=== PATIENT | male | born 1960 | race Caucasian/White ===

== ENCOUNTER 2019-06-01 20:19 | Inpatient (IN) | payer OTHER ==
[~2019-06-01] VITALS: Ht 167.6 cm; Wt 75.3 kg
[~2019-06-01 20:19] MED LIST: ALBU90AE INHALATION; AMLO5TAB4 PO; ASPI-817 PO; BUME1TAB PO; CHOL100062 PO; CLOT30CR24 TOP; DICL100G37 TOP; ERGO500013 PO; FER325 PO; FURO40TA4 PO; GUAI5SYR2 PO; INSU100I12 SQ; INSU100I33 SC; LISI-313 PO; LORA-186 PO; METO-335 PO; NICO-546 TRANSDERM; NICO2GUM7 BUCCAL; PANT40TA4 PO; PROP10TA6 PO; SPIR25TA PO; TIOT18CA INH; TRAZ150T65 PO; VARE0.5T PO; WORK NOTE
[2019-06-01] MEDS ORDERED: METHYLPREDNISOLONE 125 MG INJ IV STA (20:26)
[2019-06-01] MEDS ORDERED: ALBUTEROL 0.5% (NEB) 2.5 MG/0.5 ML AMP INH STA (20:26)
[2019-06-01] MEDS ORDERED: IPRATROPIUM (NEB) 0.5 MG/2.5 ML AMP INH STA (20:26)
[2019-06-01] MEDS ORDERED: INSULIN LISPRO 100 UNIT/ML VIAL SC STA (20:57)
[2019-06-01] MEDS ORDERED: DEXTROSE 50% 50 ML SYRINGE IV PRN ×2 (21:30)
[2019-06-01] MEDS ORDERED: GLUCOSE GEL 15 GRAM TUBE PO PRN ×2 (21:30)
[2019-06-01] MEDS ORDERED: GLUCAGON 1 MG INJ IM PRN (21:30)
[2019-06-01] MEDS ORDERED: GLUCOSE GEL 15 GRAM TUBE BUCCAL PRN (21:30)
[2019-06-01] MEDS ORDERED: NALOXONE (0.4 MG/ML) INJ ONE (21:37)
[2019-06-01] MEDS ORDERED: NALOXONE 2 MG SYG IV ONE (22:00)
[2019-06-01] MEDS ORDERED: FUROSEMIDE 40 MG INJ IV ONE (22:00)
[2019-06-01] MEDS ORDERED: BISACODYL (EC) 5 MG TAB PO PRN (23:30)
[2019-06-01] MEDS ORDERED: DOCUSATE SODIUM 100 MG CAP PO PRN (23:30)
[2019-06-01] MEDS ORDERED: ONDANSETRON 4 MG INJ IV PRN (23:30)
[2019-06-01] MEDS ORDERED: NACL 0.9% 3 ML SYG IV SCH (23:30)
[2019-06-01] MEDS ORDERED: ACETAMINOPHEN 325 MG TAB PO PRN (23:30)
[2019-06-01] MEDS ORDERED: hydrALAzine 20 MG INJ IV PRN (23:30)
[2019-06-02] VITALS (10 sets, daily range): BP systolic 119–152; BP diastolic 67–85; PULSE 43–86; RESP 17–20; Ht 167.6 cm; Wt 75.3 kg
[2019-06-02] MEDS ORDERED: METHYLPREDNISOLONE 40 MG INJ IV ONE
[2019-06-02] MEDS: ALBUTEROL/IPRATROPIUM (NEB) 3 ML AMP HHN SCH ×6 (01:15→20:36)
[2019-06-02] MEDS ORDERED: ACCU-CHEK XX SCH (02:00)
[2019-06-02] MEDS ORDERED: INSULIN REGULAR, HUMAN 100 UNIT/1 ML 3ML VIAL IV ONE (03:00)
[2019-06-02] MEDS ORDERED: FUROSEMIDE 40 MG INJ IV SCH (06:00)
[2019-06-02] MEDS: PANTOPRAZOLE (EC) 40 MG TAB PO SCH (06:34)
[2019-06-02] MEDS ORDERED: INSULIN GLARGINE [LANTus] (100 UNITS/ML) SYG SC ONE (07:00)
[2019-06-02] MEDS ORDERED: INSULIN ASPART [NOVOLOG] 3 ML PEN SC SCH ×3 (07:55)
[2019-06-02] MEDS ORDERED: METHYLPREDNISOLONE 40 MG INJ IV SCH (09:00)
[2019-06-02] MEDS ORDERED: NPH, HUMAN INSULIN ISOPHANE 3ML VIAL SC SCH (09:00)
[2019-06-02] MEDS ORDERED: NPH, HUMAN INSULIN ISOPHANE 3ML VIAL SC ONE (11:00)
[2019-06-02] MEDS ORDERED: NICOTINE (14 MG/24 HR) PATCH TRANSDERM ONE (11:30)
[2019-06-02] MEDS: INSULIN ASPART [NOVOLOG] 3 ML PEN SC SCH ×6 (11:50→21:23)
[2019-06-02] MEDS ORDERED: hydrALAzine 20 MG INJ IV PRN (12:00)
[2019-06-02] MEDS: TIOTROPIUM 18 MCG CAPSULE INHA DEV INH SCH (14:13)
[2019-06-02] MEDS ORDERED: POTASSIUM CHLORIDE (SR) 20 MEQ TAB PO STA (15:31)
[2019-06-02] MEDS: SPIRONOLACTONE 25 MG TAB PO SCH (16:21)
[2019-06-02] MEDS: ASPIRIN (EC) 81 MG TAB PO SCH (16:21)
[2019-06-02] MEDS ORDERED: NON-FORMULARY/PATIENT OWN MED (Insulin Lispro (Humalog Kwikpen U-100) 6 UNIT) SQ SCH (17:00)
[2019-06-02] MEDS ORDERED: ALBUTEROL HFA 8 GM INHALER INH PRN (17:00)
[2019-06-02] MEDS: FUROSEMIDE 40 MG INJ IV SCH (17:41)
[2019-06-02] MEDS ORDERED: INSULIN GLARGINE [LANTus] (100 UNITS/ML) SYG SC SCH ×3 (20:00)
[2019-06-02] MEDS ORDERED: traZODone 100 MG TAB PO ONE (22:30)
[2019-06-03 00:09] VITALS: BP 134/88; PULSE 85; RESP 20
[2019-06-03] MEDS: ALBUTEROL/IPRATROPIUM (NEB) 3 ML AMP HHN SCH ×6 (01:20→20:35)
[2019-06-03] MEDS: ACCU-CHEK XX SCH (02:00)
[2019-06-03 04:18] VITALS: BP 137/77; PULSE 87; RESP 20
[2019-06-03] MEDS: FUROSEMIDE 40 MG INJ IV SCH ×2 (05:49→17:08)
[2019-06-03] MEDS: PANTOPRAZOLE (EC) 40 MG TAB PO SCH (05:49)
[2019-06-03 07:59] VITALS: BP 132/84; PULSE 89; RESP 17
[2019-06-03] MEDS: TIOTROPIUM 18 MCG CAPSULE INHA DEV INH SCH (08:26)
[2019-06-03] MEDS: NICOTINE (14 MG/24 HR) PATCH TRANSDERM SCH (08:27)
[2019-06-03] MEDS: BALSAM PERU/CASTOR OIL 60 GM TUBE TOP SCH (08:27)
[2019-06-03] MEDS: ASPIRIN (EC) 81 MG TAB PO SCH (08:28)
[2019-06-03] MEDS: LORATADINE 10 MG TAB PO SCH (08:28)
[2019-06-03] MEDS: SPIRONOLACTONE 25 MG TAB PO SCH (08:28)
[2019-06-03] MEDS: FERROUS SULFATE (EC) 325 MG TAB PO SCH (08:28)
[2019-06-03] MEDS: INSULIN ASPART [NOVOLOG] 3 ML PEN SC SCH ×7 (08:37→20:26)
[2019-06-03] MEDS ORDERED: predniSONE 20 MG TAB PO SCH (09:00)
[2019-06-03] MEDS ORDERED: NPH, HUMAN INSULIN ISOPHANE 3ML VIAL SC SCH (09:00)
[2019-06-03] MEDS ORDERED: ASPIRIN (EC) 81 MG TAB PO SCH (09:00)
[2019-06-03 11:36] VITALS: BP 132/79; PULSE 56; RESP 17
[2019-06-03] MEDS ORDERED: INSULIN ASPART [NOVOLOG] 3 ML PEN SC SCH ×2 (12:30→17:55)
[2019-06-03] MEDS ORDERED: PROPRANOLOL 10 MG TAB PO SCH ×2 (13:00→14:30)
[2019-06-03 15:50] VITALS: BP 148/90; PULSE 66; RESP 17
[2019-06-03] MEDS ORDERED: MAGNESIUM SULFATE 3 GM in DEXTROSE 5% 100 ML IVPB ONE (19:30)
[2019-06-03] MEDS ORDERED: INSULIN GLARGINE [LANTus] (100 UNITS/ML) SYG SC SCH (20:00)
[2019-06-03 20:29] VITALS: BP 131/84; PULSE 70; RESP 20
[2019-06-03] MEDS: INSULIN GLARGINE [LANTus] (100 UNITS/ML) SYG SC SCH (20:35)
[2019-06-03] MEDS: METOPROLOL (XL) 25 MG TAB PO SCH (20:50)
[2019-06-03] MEDS ORDERED: traZODone 100 MG TAB PO ONE (21:00)
[2019-06-04 00:10] VITALS: BP 132/68; PULSE 78; RESP 18
[2019-06-04] MEDS: ALBUTEROL/IPRATROPIUM (NEB) 3 ML AMP HHN SCH ×6 (00:58→21:11)
[2019-06-04] MEDS: ACCU-CHEK XX SCH (02:00)
[2019-06-04 04:21] VITALS: BP 128/79; PULSE 79; RESP 18
[2019-06-04] MEDS: PANTOPRAZOLE (EC) 40 MG TAB PO SCH (05:48)
[2019-06-04 07:32] VITALS: BP 122/75; PULSE 61; RESP 18
[2019-06-04] MEDS: FUROSEMIDE 40 MG INJ IV SCH (08:32)
[2019-06-04] MEDS: ASPIRIN (EC) 81 MG TAB PO SCH (08:33)
[2019-06-04] MEDS: TIOTROPIUM 18 MCG CAPSULE INHA DEV INH SCH (08:33)
[2019-06-04] MEDS: SPIRONOLACTONE 25 MG TAB PO SCH (08:34)
[2019-06-04] MEDS: METOPROLOL (XL) 25 MG TAB PO SCH ×2 (08:34→21:03)
[2019-06-04] MEDS: FERROUS SULFATE (EC) 325 MG TAB PO SCH (08:34)
[2019-06-04] MEDS: INSULIN ASPART [NOVOLOG] 3 ML PEN SC SCH ×7 (08:37→21:18)
[2019-06-04] MEDS: LORATADINE 10 MG TAB PO SCH (08:38)
[2019-06-04] MEDS: NICOTINE (14 MG/24 HR) PATCH TRANSDERM SCH (08:39)
[2019-06-04] MEDS: BALSAM PERU/CASTOR OIL 60 GM TUBE TOP SCH (08:39)
[2019-06-04] MEDS ORDERED: predniSONE 20 MG TAB PO SCH ×2 (09:00)
[2019-06-04] MEDS ORDERED: NPH, HUMAN INSULIN ISOPHANE 3ML VIAL SC SCH ×2 (09:00)
[2019-06-04 11:26] VITALS: BP 139/72; PULSE 70; RESP 18
[2019-06-04 15:40] VITALS: BP 125/79; PULSE 63; RESP 19
[2019-06-04] MEDS: LEVOFLOXACIN 500MG/D5W (PMX) 100 ML IVPB SCH (15:50)
[2019-06-04 19:49] VITALS: BP 135/71; PULSE 70; RESP 18
[2019-06-04] MEDS: INSULIN GLARGINE [LANTus] (100 UNITS/ML) SYG SC SCH (21:09)
[2019-06-04] MEDS ORDERED: ACCU-CHEK XX ONE (21:30)
[2019-06-04] MEDS ORDERED: INSULIN ASPART [NOVOLOG] 3 ML PEN SC ONE (21:30)
[2019-06-04] MEDS: traZODone 50 MG TAB PO PRN (21:52)
[2019-06-05 00:09] VITALS: BP 108/65; PULSE 80; RESP 18
[2019-06-05] MEDS: ALBUTEROL/IPRATROPIUM (NEB) 3 ML AMP HHN SCH ×6 (01:50→21:00)
[2019-06-05] MEDS: ACCU-CHEK XX SCH (02:10)
[2019-06-05] MEDS ORDERED: ALPRAZOLAM 0.25 MG TAB PO ONE (04:00)
[2019-06-05 04:44] VITALS: BP 125/73; PULSE 77; RESP 18
[2019-06-05] MEDS: PANTOPRAZOLE (EC) 40 MG TAB PO SCH (05:39)
[2019-06-05] MEDS: INSULIN ASPART [NOVOLOG] 3 ML PEN SC SCH ×7 (07:55→21:32)
[2019-06-05 07:58] VITALS: BP 132/81; PULSE 66; RESP 18
[2019-06-05] MEDS: LORATADINE 10 MG TAB PO SCH (08:32)
[2019-06-05] MEDS: SPIRONOLACTONE 25 MG TAB PO SCH (08:32)
[2019-06-05] MEDS: ASPIRIN (EC) 81 MG TAB PO SCH (08:32)
[2019-06-05] MEDS: METOPROLOL (XL) 25 MG TAB PO SCH ×2 (08:37→20:45)
[2019-06-05] MEDS: BALSAM PERU/CASTOR OIL 60 GM TUBE TOP SCH (08:38)
[2019-06-05] MEDS: FUROSEMIDE 40 MG INJ IV SCH (08:38)
[2019-06-05] MEDS: NICOTINE (14 MG/24 HR) PATCH TRANSDERM SCH (08:39)
[2019-06-05] MEDS: TIOTROPIUM 18 MCG CAPSULE INHA DEV INH SCH (08:39)
[2019-06-05] MEDS: FERROUS SULFATE (EC) 325 MG TAB PO SCH (08:39)
[2019-06-05] MEDS ORDERED: LIDOCAINE 1% (MPF) 5 ML VIAL ONE (12:06)
[2019-06-05 15:39] VITALS: BP 134/58; PULSE 53; RESP 18
[2019-06-05] MEDS: LEVOFLOXACIN 500MG/D5W (PMX) 100 ML IVPB SCH (16:23)
[2019-06-05 20:20] VITALS: BP 136/68; PULSE 74; RESP 18
[2019-06-05] MEDS: INSULIN GLARGINE [LANTus] (100 UNITS/ML) SYG SC SCH (20:56)
[2019-06-05] MEDS: traZODone 50 MG TAB PO PRN (22:29)
[2019-06-06 00:09] VITALS: BP 129/80; PULSE 72; RESP 20
[2019-06-06] MEDS: ALBUTEROL/IPRATROPIUM (NEB) 3 ML AMP HHN SCH ×6 (01:33→20:46)
[2019-06-06] MEDS: ACCU-CHEK XX SCH (02:20)
[2019-06-06 04:09] VITALS: BP 136/77; RESP 20
[2019-06-06] MEDS ORDERED: LEVOFLOXACIN 500 MG TAB PO SCH (06:00)
[2019-06-06] MEDS: PANTOPRAZOLE (EC) 40 MG TAB PO SCH (06:28)
[2019-06-06] MEDS: INSULIN ASPART [NOVOLOG] 3 ML PEN SC SCH ×7 (07:55→20:14)
[2019-06-06] MEDS: NICOTINE (14 MG/24 HR) PATCH TRANSDERM SCH (08:42)
[2019-06-06] MEDS: LORATADINE 10 MG TAB PO SCH (08:43)
[2019-06-06] MEDS: ASPIRIN (EC) 81 MG TAB PO SCH (08:43)
[2019-06-06] MEDS: SPIRONOLACTONE 25 MG TAB PO SCH (08:43)
[2019-06-06] MEDS: FERROUS SULFATE (EC) 325 MG TAB PO SCH (08:43)
[2019-06-06 08:48] VITALS: BP 126/88; PULSE 70; RESP 20
[2019-06-06] MEDS: METOPROLOL (XL) 25 MG TAB PO SCH ×2 (08:52→20:18)
[2019-06-06] MEDS: BALSAM PERU/CASTOR OIL 60 GM TUBE TOP SCH (08:53)
[2019-06-06] MEDS: FUROSEMIDE 40 MG TAB PO SCH (08:53)
[2019-06-06] MEDS: TIOTROPIUM 18 MCG CAPSULE INHA DEV INH SCH (11:32)
[2019-06-06 12:22] VITALS: BP 135/67; PULSE 50
[2019-06-06] MEDS ORDERED: LIDOCAINE 1% (MPF) 5 ML VIAL ONE (13:14)
[2019-06-06 15:00] VITALS: BP 125/59; PULSE 51; RESP 20
[2019-06-06] MEDS: INSULIN GLARGINE [LANTus] (100 UNITS/ML) SYG SC SCH (20:15)
[2019-06-06 20:34] VITALS: BP 146/69; PULSE 69; RESP 20
[2019-06-07 00:14] VITALS: BP 143/70; PULSE 69; RESP 20
[2019-06-07] MEDS: ALBUTEROL/IPRATROPIUM (NEB) 3 ML AMP HHN SCH ×6 (01:00→20:36)
[2019-06-07] MEDS: ACCU-CHEK XX SCH (02:00)
[2019-06-07 04:36] VITALS: BP 121/81; PULSE 65; RESP 18
[2019-06-07] MEDS: PANTOPRAZOLE (EC) 40 MG TAB PO SCH (06:02)
[2019-06-07] MEDS: INSULIN ASPART [NOVOLOG] 3 ML PEN SC SCH ×7 (07:39→21:49)
[2019-06-07 07:56] VITALS: BP 138/90; PULSE 68; RESP 18
[2019-06-07] MEDS: TIOTROPIUM 18 MCG CAPSULE INHA DEV INH SCH (07:58)
[2019-06-07] MEDS: BALSAM PERU/CASTOR OIL 60 GM TUBE TOP SCH (07:59)
[2019-06-07] MEDS: NICOTINE (14 MG/24 HR) PATCH TRANSDERM SCH (08:08)
[2019-06-07] MEDS: ASPIRIN (EC) 81 MG TAB PO SCH (08:08)
[2019-06-07] MEDS: LORATADINE 10 MG TAB PO SCH (08:08)
[2019-06-07] MEDS: SPIRONOLACTONE 25 MG TAB PO SCH (08:09)
[2019-06-07] MEDS: METOPROLOL (XL) 25 MG TAB PO SCH ×2 (08:09→21:06)
[2019-06-07] MEDS: FUROSEMIDE 40 MG TAB PO SCH (08:09)
[2019-06-07] MEDS: FERROUS SULFATE (EC) 325 MG TAB PO SCH (08:09)
[2019-06-07 11:17] VITALS: BP 139/76; PULSE 71; RESP 20
[2019-06-07 16:22] VITALS: BP 134/84; PULSE 71; RESP 20
[2019-06-07 20:00] VITALS: BP 125/76; PULSE 71; RESP 18
[2019-06-07] MEDS ORDERED: INSULIN GLARGINE [LANTus] (100 UNITS/ML) SYG SC ONE (20:00)
[2019-06-07] MEDS ORDERED: LISINOPRIL 5 MG TAB PO SCH (21:00)
[2019-06-07] MEDS: traZODone 50 MG TAB PO PRN (21:09)
[2019-06-08] VITALS: BP 129/80; PULSE 64; PULSE 69; RESP 20
[2019-06-08] MEDS: ALBUTEROL/IPRATROPIUM (NEB) 3 ML AMP HHN SCH ×6 (00:53→20:43)
[2019-06-08] MEDS: ACCU-CHEK XX SCH (02:20)
[2019-06-08 04:00] VITALS: BP 132/63; PULSE 69; RESP 18
[2019-06-08] MEDS: PANTOPRAZOLE (EC) 40 MG TAB PO SCH (06:06)
[2019-06-08 07:17] VITALS: BP 108/56; PULSE 73; RESP 18
[2019-06-08] MEDS: INSULIN ASPART [NOVOLOG] 3 ML PEN SC SCH ×7 (07:27→20:21)
[2019-06-08] MEDS: TIOTROPIUM 18 MCG CAPSULE INHA DEV INH SCH (08:35)
[2019-06-08] MEDS: NICOTINE (14 MG/24 HR) PATCH TRANSDERM SCH (08:36)
[2019-06-08] MEDS: BALSAM PERU/CASTOR OIL 60 GM TUBE TOP SCH (08:36)
[2019-06-08] MEDS: SPIRONOLACTONE 25 MG TAB PO SCH (08:37)
[2019-06-08] MEDS: ASPIRIN (EC) 81 MG TAB PO SCH (08:37)
[2019-06-08] MEDS: LORATADINE 10 MG TAB PO SCH (08:37)
[2019-06-08] MEDS: FUROSEMIDE 40 MG TAB PO SCH (08:37)
[2019-06-08] MEDS: FERROUS SULFATE (EC) 325 MG TAB PO SCH (08:37)
[2019-06-08] MEDS: METOPROLOL (XL) 25 MG TAB PO SCH ×2 (08:38→20:18)
[2019-06-08] MEDS ORDERED: LISINOPRIL 5 MG TAB PO SCH (09:00)
[2019-06-08 11:14] VITALS: BP 113/58; PULSE 74; RESP 18
[2019-06-08] MEDS ORDERED: LISINOPRIL 5 MG TAB PO ONE (11:30)
[2019-06-08 15:45] VITALS: BP 115/65; PULSE 73; RESP 18
[2019-06-08 20:15] VITALS: BP 120/63; PULSE 72; RESP 18
[2019-06-08] MEDS: LISINOPRIL 5 MG TAB PO SCH (20:19)
[2019-06-08] MEDS: INSULIN GLARGINE [LANTus] (100 UNITS/ML) SYG SC SCH (21:04)
[2019-06-08] MEDS: traZODone 50 MG TAB PO PRN (21:10)
[2019-06-09] VITALS: BP 126/64; PULSE 64; RESP 18
[2019-06-09] MEDS: ALBUTEROL/IPRATROPIUM (NEB) 3 ML AMP HHN SCH ×5 (01:02→17:10)
[2019-06-09] MEDS: ACCU-CHEK XX SCH (02:24)
[2019-06-09 03:47] VITALS: BP 105/54; PULSE 65; RESP 18
[2019-06-09] MEDS: PANTOPRAZOLE (EC) 40 MG TAB PO SCH (05:19)
[2019-06-09 07:45] VITALS: BP 135/74; PULSE 61; RESP 17
[2019-06-09] MEDS: INSULIN ASPART [NOVOLOG] 3 ML PEN SC SCH ×6 (07:55→17:52)
[2019-06-09] MEDS: ASPIRIN (EC) 81 MG TAB PO SCH (08:17)
[2019-06-09] MEDS: TIOTROPIUM 18 MCG CAPSULE INHA DEV INH SCH (08:17)
[2019-06-09] MEDS: SPIRONOLACTONE 25 MG TAB PO SCH (08:17)
[2019-06-09] MEDS: FERROUS SULFATE (EC) 325 MG TAB PO SCH (08:18)
[2019-06-09] MEDS: LISINOPRIL 5 MG TAB PO SCH (08:18)
[2019-06-09] MEDS: METOPROLOL (XL) 25 MG TAB PO SCH (08:18)
[2019-06-09] MEDS: LORATADINE 10 MG TAB PO SCH (08:18)
[2019-06-09] MEDS: FUROSEMIDE 40 MG TAB PO SCH (08:18)
[2019-06-09] MEDS: BALSAM PERU/CASTOR OIL 60 GM TUBE TOP SCH (08:19)
[2019-06-09] MEDS: NICOTINE (14 MG/24 HR) PATCH TRANSDERM SCH (08:19)
[2019-06-09 11:21] VITALS: BP 136/76; PULSE 66; RESP 17
[2019-06-09 15:08] VITALS: BP 114/73; PULSE 64; RESP 17
== END 2019-06-09 19:13 | disposition home or self-care (01) | DRG 291 ==
LOC: E/R 20:19 → TEL 23:14 → CANRESERV 23:27
PROVIDERS: ADMIT Family Medicine; ATTEND Family Medicine
PROC: 0W993ZZ Drainage of Right Pleural Cavity, Percutaneous Approach (ICD-10-PCS; principal; 2019-06-05)
PROC: 0W9B3ZZ Drainage of Left Pleural Cavity, Percutaneous Approach (ICD-10-PCS; 2019-06-06)
DX: I13.0 Hypertensive heart and chronic kidney disease with heart failure and stage 1 through stage 4 chronic kidney disease, or unspecified chronic kidney disease (principal); J96.00 Acute respiratory failure, unspecified whether with hypoxia or hypercapnia; I50.23 Acute on chronic systolic (congestive) heart failure; J18.9 Pneumonia, unspecified organism; J44.1 Chronic obstructive pulmonary disease with (acute) exacerbation; N17.9 Acute kidney failure, unspecified; J90 Pleural effusion, not elsewhere classified; K76.6 Portal hypertension; N18.9 Chronic kidney disease, unspecified; E11.22 Type 2 diabetes mellitus with diabetic chronic kidney disease; E11.65 Type 2 diabetes mellitus with hyperglycemia; Z59.0 Homelessness; Z72.0 Tobacco use; R00.2 Palpitations; R07.9 Chest pain, unspecified; B19.20 Unspecified viral hepatitis C without hepatic coma; K74.60 Unspecified cirrhosis of liver; I25.2 Old myocardial infarction; I44.0 Atrioventricular block, first degree; I45.10 Unspecified right bundle-branch block
CPT/HCPCS: 32555; 36600; 70450; 71045; 71250; 76604; 76775; 76942; 80048; 80053; 80061; 80307; 81001; 81003; 82140; 82150; 82550; 82553; 82570; 82595; 82728; 82803; 82945; 82962; 83036; 83540; 83615; 83690; 83735; 83880; 84100; 84145; 84157; 84439; 84443; 84484; 85025; 85610; 85730; 86021; 86038; 86160; 86162; 86706; 86803; 87070; 87102; 87116; 87340; 88104; 88305; 89051; 93005; 93306; 94640; 94644; 94660; 94664; 96372; 96374; 96375; J1815; J1940; J1956; J2310; J2920; J2930; J3475; J7512

== ENCOUNTER 2019-06-27 21:57 | Inpatient (IN) | payer OTHER ==
[~2019-06-27] VITALS: Ht 172.7 cm; Wt 73.8 kg
[~2019-06-27 21:57] MED LIST changes: -AMLO5TAB4 PO; -BUME1TAB PO; -CLOT30CR24 TOP; -DICL100G37 TOP; -ERGO500013 PO; -PROP10TA6 PO
[2019-06-27] MEDS ORDERED: INSULIN ASPART [NOVOLOG] 3 ML PEN SC ONE (23:00)
[2019-06-27] MEDS ORDERED: FUROSEMIDE 40 MG INJ IV ONE (23:00)
[2019-06-27] MEDS ORDERED: ACCU-CHEK XX ONE (23:00)
[2019-06-27] MEDS ORDERED: ACETAMINOPHEN 325 MG TAB PO PRN ×2 (23:30)
[2019-06-27] MEDS ORDERED: GUAIFENESIN/DM 5ML CUP PO PRN (23:30)
[2019-06-27] MEDS ORDERED: ONDANSETRON 4 MG INJ IV PRN ×2 (23:30)
[2019-06-27] MEDS ORDERED: LEVALBUTEROL (NEB) 1.25 MG/0.5 ML AMP HHN PRN (23:30)
[2019-06-27] MEDS ORDERED: NACL 0.9% 3 ML SYG IV SCH (23:30)
[2019-06-27] MEDS ORDERED: IPRATROPIUM (NEB) 0.5 MG/2.5 ML AMP HHN PRN (23:30)
[2019-06-28] VITALS (7 sets, daily range): BP systolic 125–174; BP diastolic 66–109; PULSE 74–98; RESP 16–20; Ht 172.7 cm; Wt 73.8 kg
[2019-06-28] MEDS: LISINOPRIL 5 MG TAB PO SCH ×3 (00:14→20:44)
[2019-06-28] MEDS ORDERED: GLUCOSE GEL 15 GRAM TUBE PO PRN ×2 (01:30)
[2019-06-28] MEDS ORDERED: GLUCAGON 1 MG INJ IM PRN (01:30)
[2019-06-28] MEDS ORDERED: DEXTROSE 50% 50 ML SYRINGE IV PRN ×2 (01:30)
[2019-06-28] MEDS ORDERED: GLUCOSE GEL 15 GRAM TUBE BUCCAL PRN (01:30)
[2019-06-28] MEDS: ACCU-CHEK XX SCH (02:02)
[2019-06-28] MEDS ORDERED: MAGNESIUM SULFATE 2 GM/50 ML 50 ML IVPB ONE (02:30)
[2019-06-28] MEDS: NITROGLYCERIN (SL) 0.4 MG TAB SL PRN ×2 (02:38→02:50)
[2019-06-28] MEDS ORDERED: hydrALAzine 20 MG INJ IV PRN (03:30)
[2019-06-28] MEDS ORDERED: FUROSEMIDE 20 MG INJ IV ONE (03:30)
[2019-06-28] MEDS ORDERED: LEVALBUTEROL (NEB) 1.25 MG/0.5 ML AMP HHN PRN (03:30)
[2019-06-28] MEDS ORDERED: IPRATROPIUM (NEB) 0.5 MG/2.5 ML AMP HHN PRN (03:30)
[2019-06-28] MEDS: METOPROLOL (XL) 25 MG TAB PO SCH ×2 (04:15→20:45)
[2019-06-28] MEDS ORDERED: PENDING SANTYL ORDER FOR WOUND CARE XX PRN (05:00)
[2019-06-28] MEDS: PANTOPRAZOLE (EC) 40 MG TAB PO SCH (05:57)
[2019-06-28] MEDS: FUROSEMIDE 40 MG INJ IV SCH ×2 (05:58→17:35)
[2019-06-28] MEDS: ASPIRIN (EC) 81 MG TAB PO SCH (08:11)
[2019-06-28] MEDS: FERROUS SULFATE (EC) 325 MG TAB PO SCH (08:11)
[2019-06-28] MEDS: CHOLECALCIFEROL 1,000 UNIT TAB PO SCH (08:12)
[2019-06-28] MEDS: SPIRONOLACTONE 25 MG TAB PO SCH (08:12)
[2019-06-28] MEDS: INSULIN ASPART [NOVOLOG] 3 ML PEN SC SCH ×7 (08:17→20:49)
[2019-06-28] MEDS: ENOXAPARIN 40 MG/0.4 ML SYG SC SCH (08:17)
[2019-06-28] MEDS: TIOTROPIUM 18 MCG CAPSULE INHA DEV INH SCH (09:00)
[2019-06-28] MEDS: INSULIN GLARGINE [LANTus] (100 UNITS/ML) SYG SC SCH (12:28)
[2019-06-28] MEDS ORDERED: LORAZEPAM 1 MG TAB PO ONE (17:30)
[2019-06-28] MEDS ORDERED: traZODone 50 MG TAB PO SCH (22:30)
[2019-06-28] MEDS: LORAZEPAM 2 MG INJ IV PRN (22:57)
[2019-06-29] VITALS (8 sets, daily range): BP systolic 103–155; BP diastolic 74–90; PULSE 44–77; RESP 14–24
[2019-06-29] MEDS: ACCU-CHEK XX SCH (02:00)
[2019-06-29] MEDS: FUROSEMIDE 40 MG INJ IV SCH ×2 (05:39→17:41)
[2019-06-29] MEDS: PANTOPRAZOLE (EC) 40 MG TAB PO SCH (05:44)
[2019-06-29] MEDS: INSULIN ASPART [NOVOLOG] 3 ML PEN SC SCH ×6 (07:55→20:37)
[2019-06-29] MEDS: ASPIRIN (EC) 81 MG TAB PO SCH (08:18)
[2019-06-29] MEDS: SPIRONOLACTONE 25 MG TAB PO SCH (08:18)
[2019-06-29] MEDS: CHOLECALCIFEROL 1,000 UNIT TAB PO SCH (08:18)
[2019-06-29] MEDS: METOPROLOL (XL) 25 MG TAB PO SCH ×2 (08:18→20:58)
[2019-06-29] MEDS: LISINOPRIL 5 MG TAB PO SCH ×2 (08:18→20:58)
[2019-06-29] MEDS: TIOTROPIUM 18 MCG CAPSULE INHA DEV INH SCH (08:19)
[2019-06-29] MEDS: FERROUS SULFATE (EC) 325 MG TAB PO SCH (08:19)
[2019-06-29] MEDS: INSULIN GLARGINE [LANTus] (100 UNITS/ML) SYG SC SCH (08:21)
[2019-06-29] MEDS: ENOXAPARIN 40 MG/0.4 ML SYG SC SCH (08:22)
[2019-06-29] MEDS: LORAZEPAM 2 MG INJ IV PRN (11:17)
[2019-06-29] MEDS ORDERED: HALOPERIDOL 5 MG INJ IM ONE (21:00)
[2019-06-29] MEDS: NICOTINE (21 MG/24 HR) PATCH TRANSDERM SCH (21:25)
[2019-06-29] MEDS: NICOTINE POLACRILEX 2 MG GUM BUCCAL PRN (22:00)
[2019-06-29] MEDS ORDERED: NA BICARBONATE 8.4% 50 ML SYG IV ONE (23:30)
[2019-06-29] MEDS ORDERED: DIPHENHYDRAMINE 50 MG INJ IV ONE (23:30)
[2019-06-29] MEDS ORDERED: DIPHENHYDRAMINE 50 MG CAP PO ONE (23:30)
[2019-06-30] MEDS: ACCU-CHEK XX SCH (02:00)
[2019-06-30 03:30] VITALS: BP 130/84; PULSE 70; RESP 22
[2019-06-30] MEDS: traZODone 50 MG TAB PO SCH ×2 (03:51→20:17)
[2019-06-30] MEDS: PANTOPRAZOLE (EC) 40 MG TAB PO SCH (06:52)
[2019-06-30] MEDS: FUROSEMIDE 40 MG INJ IV SCH ×2 (06:52→17:36)
[2019-06-30] MEDS: METOPROLOL (XL) 25 MG TAB PO SCH ×2 (07:08→20:17)
[2019-06-30 07:30] VITALS: BP 140/52; PULSE 57; RESP 20
[2019-06-30] MEDS: INSULIN ASPART [NOVOLOG] 3 ML PEN SC SCH ×4 (07:55→20:43)
[2019-06-30] MEDS: TIOTROPIUM 18 MCG CAPSULE INHA DEV INH SCH (08:25)
[2019-06-30] MEDS: ASPIRIN (EC) 81 MG TAB PO SCH (08:28)
[2019-06-30] MEDS: LISINOPRIL 5 MG TAB PO SCH ×2 (08:28→20:17)
[2019-06-30] MEDS: CHOLECALCIFEROL 1,000 UNIT TAB PO SCH (08:28)
[2019-06-30] MEDS: SPIRONOLACTONE 25 MG TAB PO SCH (08:28)
[2019-06-30] MEDS: FERROUS SULFATE (EC) 325 MG TAB PO SCH (08:28)
[2019-06-30] MEDS: NICOTINE (21 MG/24 HR) PATCH TRANSDERM SCH (08:29)
[2019-06-30] MEDS: INSULIN GLARGINE [LANTus] (100 UNITS/ML) SYG SC SCH (08:37)
[2019-06-30] MEDS: ENOXAPARIN 40 MG/0.4 ML SYG SC SCH (08:37)
[2019-06-30 12:50] VITALS: BP 123/68; PULSE 68; RESP 20
[2019-06-30] MEDS: LORAZEPAM 2 MG INJ IV PRN (14:29)
[2019-06-30 15:44] VITALS: BP 109/57; PULSE 66; RESP 18
[2019-06-30 20:00] VITALS: BP 111/59; PULSE 69; RESP 21
[2019-06-30] MEDS: HEPARIN 5,000 UNIT/1 ML VIAL SC SCH (20:43)
[2019-06-30 23:30] VITALS: BP 127/63; PULSE 70; RESP 19
[2019-07-01] MEDS: ACCU-CHEK XX SCH (02:58)
[2019-07-01 06:05] VITALS: BP 109/55; PULSE 71; RESP 21
[2019-07-01] MEDS: FUROSEMIDE 40 MG INJ IV SCH (06:09)
[2019-07-01] MEDS: PANTOPRAZOLE (EC) 40 MG TAB PO SCH (06:09)
[2019-07-01 07:33] VITALS: BP 118/57; PULSE 73; RESP 18
[2019-07-01] MEDS: TIOTROPIUM 18 MCG CAPSULE INHA DEV INH SCH (08:28)
[2019-07-01] MEDS: SPIRONOLACTONE 25 MG TAB PO SCH (08:29)
[2019-07-01] MEDS: CHOLECALCIFEROL 1,000 UNIT TAB PO SCH (08:29)
[2019-07-01] MEDS: FERROUS SULFATE (EC) 325 MG TAB PO SCH (08:29)
[2019-07-01] MEDS: METOPROLOL (XL) 25 MG TAB PO SCH ×2 (08:29→20:07)
[2019-07-01] MEDS: LISINOPRIL 5 MG TAB PO SCH ×2 (08:29→20:08)
[2019-07-01] MEDS: ASPIRIN (EC) 81 MG TAB PO SCH (08:29)
[2019-07-01] MEDS: NICOTINE (21 MG/24 HR) PATCH TRANSDERM SCH (08:30)
[2019-07-01] MEDS: INSULIN ASPART [NOVOLOG] 3 ML PEN SC SCH ×4 (08:40→20:07)
[2019-07-01] MEDS: INSULIN GLARGINE [LANTus] (100 UNITS/ML) SYG SC SCH (08:40)
[2019-07-01] MEDS: HEPARIN 5,000 UNIT/1 ML VIAL SC SCH ×2 (08:40→20:12)
[2019-07-01] MEDS: LORAZEPAM 2 MG INJ IV PRN (10:40)
[2019-07-01 12:03] VITALS: BP 123/62; PULSE 75; RESP 18
[2019-07-01 16:45] VITALS: BP 127/68; PULSE 73; RESP 18
[2019-07-01] MEDS: NICOTINE POLACRILEX 2 MG GUM BUCCAL PRN (17:08)
[2019-07-01 19:49] VITALS: BP 101/52; PULSE 59; RESP 18
[2019-07-01] MEDS: traZODone 50 MG TAB PO SCH (20:07)
[2019-07-02 00:04] VITALS: BP 107/55; PULSE 61; RESP 18
[2019-07-02] MEDS: ACCU-CHEK XX SCH ×2 (02:00→20:33)
[2019-07-02 04:51] VITALS: BP 109/61; PULSE 59; RESP 18
[2019-07-02] MEDS: PANTOPRAZOLE (EC) 40 MG TAB PO SCH (06:15)
[2019-07-02 07:09] VITALS: BP 121/78; PULSE 59; RESP 20
[2019-07-02] MEDS: INSULIN ASPART [NOVOLOG] 3 ML PEN SC SCH ×4 (07:55→20:17)
[2019-07-02] MEDS: TIOTROPIUM 18 MCG CAPSULE INHA DEV INH SCH (08:13)
[2019-07-02] MEDS: FERROUS SULFATE (EC) 325 MG TAB PO SCH (08:14)
[2019-07-02] MEDS: CHOLECALCIFEROL 1,000 UNIT TAB PO SCH (08:14)
[2019-07-02] MEDS: SPIRONOLACTONE 25 MG TAB PO SCH (08:14)
[2019-07-02] MEDS: ASPIRIN (EC) 81 MG TAB PO SCH (08:14)
[2019-07-02] MEDS: METOPROLOL (XL) 25 MG TAB PO SCH ×2 (08:14→20:18)
[2019-07-02] MEDS: LISINOPRIL 5 MG TAB PO SCH ×2 (08:15→20:18)
[2019-07-02] MEDS: NICOTINE (21 MG/24 HR) PATCH TRANSDERM SCH (08:21)
[2019-07-02] MEDS: HEPARIN 5,000 UNIT/1 ML VIAL SC SCH ×2 (08:38→20:22)
[2019-07-02] MEDS: INSULIN GLARGINE [LANTus] (100 UNITS/ML) SYG SC SCH (08:39)
[2019-07-02] MEDS: LORAZEPAM 2 MG INJ IV PRN ×2 (11:09→22:34)
[2019-07-02 11:15] VITALS: BP 118/71; PULSE 57; RESP 18
[2019-07-02 15:16] VITALS: BP 140/77; PULSE 62; RESP 19
[2019-07-02 19:52] VITALS: BP 120/75; PULSE 57; RESP 18
[2019-07-02] MEDS: traZODone 50 MG TAB PO SCH (20:17)
[2019-07-03 00:26] VITALS: BP 122/72; PULSE 59; RESP 18
[2019-07-03 04:31] VITALS: BP 118/75; PULSE 64; RESP 18
[2019-07-03] MEDS: PANTOPRAZOLE (EC) 40 MG TAB PO SCH (06:16)
[2019-07-03 07:17] VITALS: BP 135/86; PULSE 69; RESP 20
[2019-07-03] MEDS: INSULIN ASPART [NOVOLOG] 3 ML PEN SC SCH ×2 (07:50→11:39)
[2019-07-03] MEDS: INSULIN GLARGINE [LANTus] (100 UNITS/ML) SYG SC SCH (08:01)
[2019-07-03] MEDS: TIOTROPIUM 18 MCG CAPSULE INHA DEV INH SCH (09:25)
[2019-07-03] MEDS: METOPROLOL (XL) 25 MG TAB PO SCH (09:25)
[2019-07-03] MEDS: FERROUS SULFATE (EC) 325 MG TAB PO SCH (09:25)
[2019-07-03] MEDS: ASPIRIN (EC) 81 MG TAB PO SCH (09:25)
[2019-07-03] MEDS: CHOLECALCIFEROL 1,000 UNIT TAB PO SCH (09:25)
[2019-07-03] MEDS: LISINOPRIL 5 MG TAB PO SCH (09:25)
[2019-07-03] MEDS: SPIRONOLACTONE 25 MG TAB PO SCH (09:26)
[2019-07-03] MEDS: NICOTINE (21 MG/24 HR) PATCH TRANSDERM SCH (09:26)
[2019-07-03] MEDS: HEPARIN 5,000 UNIT/1 ML VIAL SC SCH (09:32)
[2019-07-03] MEDS: LORAZEPAM 2 MG INJ IV PRN (10:49)
[2019-07-03 11:44] VITALS: BP 134/87; PULSE 69; RESP 19
[2019-07-03 16:00] VITALS: BP 135/87; PULSE 70; RESP 19
== END 2019-07-03 16:50 | disposition home or self-care (01) | DRG 291 ==
LOC: E/R 21:57 → TEL 23:12
PROVIDERS: ADMIT Family Medicine; ATTEND Hospitalist
DX: I11.0 Hypertensive heart disease with heart failure (principal); L89.153 Pressure ulcer of sacral region, stage 3; J96.01 Acute respiratory failure with hypoxia; K74.60 Unspecified cirrhosis of liver; Z59.0 Homelessness; J44.9 Chronic obstructive pulmonary disease, unspecified; F41.9 Anxiety disorder, unspecified; F17.200 Nicotine dependence, unspecified, uncomplicated; I44.7 Left bundle-branch block, unspecified; I50.23 Acute on chronic systolic (congestive) heart failure; E11.9 Type 2 diabetes mellitus without complications
CPT/HCPCS: 36415; 36600; 71045; 80048; 80053; 80307; 82550; 82553; 82803; 82962; 83735; 83880; 84484; 85025; 93005; 94664; 97116; 97162; 97530; J1630; J1644; J1650; J1815; J1940; J2060; J3475